=== PATIENT | male | born 1955 | race Two or more races ===

== ENCOUNTER 2025-02-03 08:36 | Emergency (ER) | payer OTHER ==
[~2025-02-03] VITALS: Ht 175.3 cm; Wt 97.2 kg
[2025-02-03 08:40] VITALS: BP 162/90; PULSE 86; RESP 16; TEMP 98.1; O2SAT 96
--- NOTE | 2025-02-03 10:20 | ED.PDOC ---
General HPI Comments 69-year-old obese male, with a history of a prostate cancer-in remission for 11 years, hypertension, and kidney stones, presents with chief complaint of urinary retention, with the associated lower abdominal discomfort. Patient reports on being a unable to urinate, spontaneously, for over the past 5 hours. No further pertinent history or events reported. Denial of any flank or penile or testicular pain, nausea, vomiting, or further associated symptoms at this time. Chief Complaint: Urinary Time Seen by MD: 09:50 Reviewed notes: Nurses Notes, Medications, Allergies Allergies: Uncoded Allergies: SULFA (Allergy, Unknown, 02/03/25) Information Source: Patient Mode of Arrival: Ambulatory Severity: Moderate Inability to void: Complete Timing: Hours Duration: Since onset Has not urinated for: Hours Prehospital treatment: None Onset: Spontaneous Symptoms: Inability to void, Other (Lower abdominal cramping) History of: Other (See PMH) Location: Suprapubic Penile discharge: None Modifying factors: None associated signs and symptoms: Abdominal Pain Past Medical History PAST MEDICAL HISTORY: Cancer (Prostate cancer-in remission for 11 years), HTN, Kidney Stones Surgical History: Denies all surgeries Family History Family History: Unknown Social History Smoker: Non-Smoker Alcohol: Denies ETOH Use Drugs: Denies Drug Use Lives In: Home All Other Systems: Reviewed and Negative (Comprehensive review of systems are otherwise negative unless stated in HPI) Physical Exam General Appearance: Moderate Distress HEENT: Normal ENT Inspection, Pharynx Normal, TMs Normal Neck: Full Range of Motion, Non-Tender, Normal, Normal Inspection Respiratory: Chest Non-Tender, Lungs Clear, No Accessory Muscle Use, No Respiratory Distress, Normal Breath Sounds Cardiovascular: No Edema, No JVD, No Murmur, No Gallop, Normal Peripheral Pulses, Regular Rate/Rhythm Breast Exam: Deferred Gastrointestinal: No Organomegaly, Non Tender, No Pulsatile Mass, Normal Bowel Sounds, Soft Genitalia: Deferred Pelvic: Deferred Rectal: Deferred Extremities: No calf tenderness, Normal capillary refill, Normal inspection, Normal range of motion, Non-tender, No pedal edema Musculoskeletal : Apperance: Normal Neurologic: Alert, mat repairer II-XII nml as Tested, No Motor Deficits, Normal Affect, Normal Mood, No Sensory Deficits Cerebellar Function: Normal Reflexes: Normal Skin: Dry, Normal Color, Warm Peripheral Pulses: 3+ Radial (R), 3+ Radial (L) Lymphatic: No Adenopathy Was a procedure done? Was a procedure done?: No Differential Diagnosis Kidney stone (Female): Musculoskeletal pain, Urinary obstruction, Urolithiasis Kidney stone (Male): N/A Penile/Scrotal: N/A Urinary Problem (Male): Bladder Outlet, Bladder Obstruction, Prostatitis, Urethritis, Urinary Retention, Urolithiasis, UTI Urinary Problem (Female): N/A X-Ray, Labs, Meds, VS Vital Signs Date Time Temp Pulse Resp B/P (MAP) Pulse Ox O2 Delivery O2 Flow Rate FiO2 02/03/25 08:40 98.1 86 16 162/90 96 98.1 Patient alert. Came in because of urinary symptoms. Vitals stable. Answering questions. Blood pressure slightly elevated. Saturation pristine on room air. Possible prostate causing urinary retention. Explained to the patient. Continue monitoring. Time of 1ST Reevaluation: 10:00 Reevaluation 1ST: Unchanged Patient Education/Counseling: Treatment Family Education/Counseling: No Family Present SEPSIS Sepsis Screen Date sepsis recognized/suspect: Feb 03, 2025 Time Sepsis recognized/suspect: 841 Recent Procedure: No On Antibiotic Therapy: No Respiratory Rate >20: No Heart Rate >90: No Temp<36 C (96.8 F) or >38.3 C: No SBP <90 or MAP <65 mmHG: No New Acute Mental Status Change: No Is the patient on CPAP, BIPAP,: No Physician Orders Urinalysis (02/03/25 10:00) Insert Alfredo Catheter QSHIFT (02/03/25 10:00) Vital Signs Date Time Temp Pulse Resp B/P (MAP) Pulse Ox O2 Delivery O2 Flow Rate FiO2 02/03/25 08:40 98.1 86 16 162/90 96 98.1 Departure 1 Departure Time of Disposition: 10:58 Impression: Primary Impression: Urinary retention Additional Impression: Hypertension Qualified Codes: I10 - Essential (primary) hypertension Disposition: ADMITTED INPATIENT Admit to: Med Surg Condition: Guarded Critical Care Note Critical Care Time?: No Stability Stability form required: No Heart Score Heart Score: Heart Score Response (Comments) Value History N/A 0 EKG N/A 0 Age N/A 0 Risk Factors N/A 0 Troponin N/A 0 Total 0 I personally scribed for CHUCK FERNANDEZ MD ([email or web address]) on 02/03/25 at 10:19. Electronically submitted by Jeronimo Lew ([email or web address]). CHUCK FERNANDEZ MD Feb 03, 2025 10:19
== END 2025-02-03 10:26 | disposition left against medical advice (07) ==
LOC: ER 08:36
DX: R33.9 Retention of urine, unspecified (principal); I10 Essential (primary) hypertension; E66.9 Obesity, unspecified; Z87.442 Personal history of urinary calculi; Z88.2 Allergy status to sulfonamides; Z68.31 Body mass index [BMI] 31.0-31.9, adult